=== PATIENT | male | born 1955 | race Two or more races ===

== ENCOUNTER 2021-10-22 06:26 | Outpatient (CLI) | payer OTHER | END 2021-10-22 06:27 | disposition home or self-care (01) | LOC: LAB 06:26 | PROVIDERS: ATTEND Internal Medicine | DX: E11.42 Type 2 diabetes mellitus with diabetic polyneuropathy (principal); E78.2 Mixed hyperlipidemia; I11.9 Hypertensive heart disease without heart failure; E11.59 Type 2 diabetes mellitus with other circulatory complications ==